=== PATIENT | male | born 1960 | race Caucasian/White ===

== ENCOUNTER 2018-06-24 09:16 | Emergency (ER) | payer BC ==
[~2018-06-24] VITALS: Ht 188 cm; Wt 90.0 kg
[2018-06-24] MEDS ORDERED: SODIUM CHLORIDE 0.9% 1,000 ML IV ONE (09:44)
[2018-06-24] MEDS ORDERED: PANTOPRAZOLE SODIUM 40 MG/VIAL IV ONE (09:45)
[2018-06-24 10:55] LABS: HEMATOCRIT. 41.3 % (42.0-52.0); HEMOGLOBIN. 14.2 g/dL (14.0-18.0); MEAN CORPUSCULAR HEMOGLOBIN 32.6 pg (28.0-32.0); MEAN CORPUSCULAR VOLUME 94.8 fL (80.0-94.0); MEAN PLATELET VOLUME 7.5 fl (7.4-10.4); PLATELET 171 x1000/uL (130-400); RED BLOOD CELL COUNT 4.35 mill/uL (4.7-6.1); RED CELL DISTRIBUTION WIDTH 12.6 % (11.6-14.6)
[2018-06-24 11:00] LABS: CHLORIDE 107 mEq/L (98-107)
[2018-06-24 11:02] LABS: INR 1.1; PROTHROMBIN TIME 10.8 sec (9.1-11.1)
[2018-06-24 11:19] LABS: PLATELET ESTIMATE NORMAL
[2018-06-24 12:11] LABS: CLARITY URINE CLEAR (CLEAR); COLOR URINE YELLOW (YELLOW); KETONES URINE NEGATIVE (NEGATIVE); LEUKOCYTE ESTERASE URINE NEGATIVE (NEGATIVE); NITRITE URINE NEGATIVE (NEGATIVE); OCCULT BLOOD URINE NEGATIVE (NEGATIVE); PH URINE 6.5 (4.5-8.0); PROTEIN URINE NEGATIVE (NEGATIVE); SPECIFIC GRAVITY URINE 1.011 (1.005-1.030); UROBILINOGEN URINE 0.2 E.U./dL (0.2-1.0)
[2018-06-24 12:43] VITALS: BP 127/62
== END 2018-06-24 12:50 | disposition home or self-care (01) ==
LOC: ER 09:16
DX: R55 Syncope and collapse (principal); R10.33 Periumbilical pain
CPT/HCPCS: 36415; 71045; 80053; 81003; 83690; 85025; 85610; 93005; 96361; 96374; 99285; C9113; J7030